=== PATIENT | male | born 1960 | race Caucasian/White ===

== ENCOUNTER 2022-09-25 19:54 | Inpatient (IN) | payer MEDICARE, MEDICAID ==
[~2022-09-25] VITALS: Ht 170.2 cm; Wt 103.0 kg
[2022-09-25 20:52] LABS: Basophils # (auto) 0.1 10 ^3/uL (0-0.2); Eosinophils # (auto) 0.4 10 ^3/uL (0-0.8); Hematocrit 47.1 % (41.0-53.0); Lymphocytes # (auto) 2.2 10 ^3/uL (0.4-5.4); Lymphocytes % (auto) 23.3 % (10.0-50.0); Mean Corpuscular Hemoglobin 32.2 pg (28.0-32.0); Mean Corpuscular Hgb Conc. 33.9 g/dL (32.0-36.0); Mean Corpuscular Volume 94.8 fL (80.0-100.0); Monocytes # (auto) 1.1 10 ^3/uL (0-1.3); Monocytes % (auto) 11.8 % (0.0-12.0); Neutrophils # (auto) 5.6 10 ^3/uL (1.6-8.6); Neutrophils % (auto) 59.9 % (37.0-80.0); Nucleated Red Blood Cells % 0.2 %; Red Blood Cells 4.96 10^6/uL (4.5-5.90); Red Cell Distribution Width 13.4 % (11.8-14.3); White Blood Cell 9.4 10^3/uL (4.4-10.8)
[2022-09-25 21:08] LABS: Albumin 3.8 g/dL (3.4-5.0); Calcium 8.7 mg/dL (8.5-10.1)
[2022-09-25 21:11] LABS: BUN/Creatinine Ratio 12.4 (10.0-20.0); Bilirubin, Total 0.5 mg/dL (0.2-1.0); Total Protein 7.1 g/dL (6.4-8.2)
[2022-09-25 21:15] LABS: INR 1.07 (0.9-1.15); Partial Thromboplastin Time 29.8 SEC (24.5-34.5)
[2022-09-25] MEDS ORDERED: HYDROmorphone HCL 2 MG/ML VL/or syr IM ONE (22:15)
[2022-09-25] MEDS ORDERED: HEPARIN SODIUM (PORCINE) 5000 UNITS/ML 1ML VIAL IV ONE (22:15)
[2022-09-25 22:30] VITALS: PULSE 80; RESP 14; O2SAT 96
[2022-09-25] MEDS ORDERED: ONDANSETRON HCL 4 MG/2 ML VIAL IV PRN (23:15)
[2022-09-25] MEDS ORDERED: TEMAZEPAM 15 MG CAP PO PRN (23:15)
[2022-09-25] MEDS ORDERED: HYDROcodone-ACET 5/325MG TAB PO PRN (23:15)
[2022-09-25] MEDS ORDERED: ACETAMINOPHEN 325 MG TAB PO PRN (23:15)
[2022-09-26 06:06] LABS: Basophils # (auto) 0.1 10 ^3/uL (0-0.2); Basophils % (auto) 0.9 % (0.0-2.0); Eosinophils # (auto) 0.4 10 ^3/uL (0-0.8); Eosinophils % (auto) 4.1 % (0.0-7.0); Lymphocytes # (auto) 2.6 10 ^3/uL (0.4-5.4); Lymphocytes % (auto) 29.3 % (10.0-50.0); Mean Corpuscular Hemoglobin 32.4 pg (28.0-32.0); Mean Corpuscular Hgb Conc. 34.2 g/dL (32.0-36.0); Mean Corpuscular Volume 94.7 fL (80.0-100.0); Monocytes % (auto) 10.9 % (0.0-12.0); Neutrophils # (auto) 4.8 10 ^3/uL (1.6-8.6); Neutrophils % (auto) 54.8 % (37.0-80.0); Nucleated Red Blood Cells % 0.1 %; Red Blood Cells 4.64 10^6/uL (4.5-5.90); Red Cell Distribution Width 13.5 % (11.8-14.3); White Blood Cell 8.9 10^3/uL (4.4-10.8)
[2022-09-26 06:15] LABS: INR 1.09 (0.9-1.15); Partial Thromboplastin Time 30.5 SEC (24.5-34.5)
[2022-09-26 06:24] LABS: Calcium 8.4 mg/dL (8.5-10.1); Potassium 4.1 mmol/L (3.5-5.1)
[2022-09-26 06:30] LABS: Albumin 3.2 g/dL (3.4-5.0); BUN/Creatinine Ratio 13.2 (10.0-20.0); Bilirubin, Total 0.9 mg/dL (0.2-1.0); Total Protein 6.3 g/dL (6.4-8.2)
[2022-09-26 07:30] VITALS: PULSE 88; RESP 18; O2SAT 95
[2022-09-26] MEDS ORDERED: SODIUM CHLORIDE 0.9% 1,000 ML IV ONE (08:00)
[2022-09-26] MEDS: ENOXAPARIN SOD 100 MG/1 ML SYRINGE SC SCH ×2 (10:42→23:13)
[2022-09-26] MEDS: PANTOPRAZOLE 40 MG TAB PO SCH (10:42)
[2022-09-26 19:35] LABS: BUN/Creatinine Ratio 13.4 (10.0-20.0); Calcium 8.3 mg/dL (8.5-10.1); Potassium 4.2 mmol/L (3.5-5.1)
[2022-09-27] MEDS: METOPROLOL SUCCINATE XL 50 MG TAB PO SCH ×2 (02:52→10:00)
[2022-09-27 07:20] VITALS: RESP 18; O2SAT 97
[2022-09-27 08:07] LABS: Alcohol, Urine < 3.0 mg/dL (0-10); Amphetamine Screen, Urine NEGATIVE (NEGATIVE); Barbiturate Scree,Urine NEGATIVE (NEGATIVE); Benzodiazephine Screen, Urine NEGATIVE (NEGATIVE); Cannabinoid Screen, Urine NEGATIVE (NEGATIVE); Cocaine Screen, Urine NEGATIVE (NEGATIVE); Opiate Scree,Urine NEGATIVE (NEGATIVE); Phencyclidine Screen, Urine NEGATIVE (NEGATIVE)
[2022-09-27 08:13] LABS: Urine Bacteria NONE SEEN /hpf (None Seen); Urine Blood Negative /uL (Negative); Urine Specific Gravity 1.012 (1.001-1.035); Urine WBC <1 /hpf (0 - 3)
[2022-09-27] MEDS ORDERED: ENO150SY SC (09:59)
[2022-09-27] MEDS: SODIUM CHLORIDE 0.9% 1,000 ML IV SCH ×2 (10:48→20:27)
[2022-09-27] MEDS: ENOXAPARIN SOD 100 MG/1 ML SYRINGE SC SCH ×2 (10:48→22:02)
[2022-09-27] MEDS: PANTOPRAZOLE 40 MG TAB PO SCH (10:48)
[2022-09-27 11:02] VITALS: BP 137/83; PULSE 52; RESP 20; TEMP 97.3; O2SAT 94
[2022-09-27 13:00] VITALS: BP 117/72; PULSE 61; RESP 20; TEMP 97.6; O2SAT 96
[2022-09-27] MEDS ORDERED: APIX5TAB PO (14:10)
[2022-09-27] MEDS ORDERED: METO25TA93 PO (14:10)
[2022-09-27 17:00] VITALS: BP 105/70; PULSE 58; RESP 20; TEMP 98.6; O2SAT 93
[2022-09-27 20:00] VITALS: PULSE 65; RESP 18; O2SAT 95
[2022-09-27 22:00] VITALS: BP 104/66; PULSE 65; RESP 18; TEMP 98.3; O2SAT 93
[2022-09-28 05:00] VITALS: BP 133/66; PULSE 57; RESP 18; TEMP 98.5; O2SAT 93
[2022-09-28] MEDS: SODIUM CHLORIDE 0.9% 1,000 ML IV SCH (06:00)
[2022-09-28 08:00] VITALS: PULSE 52; RESP 16
[2022-09-28 09:13] VITALS: BP 139/71; PULSE 52; RESP 17; TEMP 98.1; O2SAT 95
[2022-09-28] MEDS: ENOXAPARIN SOD 100 MG/1 ML SYRINGE SC SCH (10:04)
[2022-09-28] MEDS: PANTOPRAZOLE 40 MG TAB PO SCH (10:04)
[2022-09-28] MEDS: METOPROLOL SUCCINATE XL 50 MG TAB PO SCH (10:05)
[2022-09-28 13:00] VITALS: BP 130/76; PULSE 53; RESP 17; O2SAT 94
[2022-09-28 13:14] VITALS: BP 139/71; PULSE 68
[2022-09-29 11:53] LABS: Hepatitis B Surface Antibody Negative (Negative)
[2022-09-29 12:23] LABS: Hepatitis A Total Antibody Negative (Negative)
[2022-09-29 12:56] LABS: Hepatitis C Antibody Negative (Negative)
== END 2022-09-28 15:00 | disposition home or self-care (01) | DRG 300 ==
LOC: ER 19:54 → OVERFLOW 23:13 → CENTRAL 09-27 08:16
PROVIDERS: ADMIT Internal Medicine; ATTEND Internal Medicine
DX: I82.411 Acute embolism and thrombosis of right femoral vein (principal); D68.2 Hereditary deficiency of other clotting factors; G47.00 Insomnia, unspecified; K21.9 Gastro-esophageal reflux disease without esophagitis; I48.91 Unspecified atrial fibrillation; Z79.01 Long term (current) use of anticoagulants; Z80.0 Family history of malignant neoplasm of digestive organs; Z86.711 Personal history of pulmonary embolism; K74.60 Unspecified cirrhosis of liver; Z90.49 Acquired absence of other specified parts of digestive tract; E66.9 Obesity, unspecified; Z68.35 Body mass index [BMI] 35.0-35.9, adult
CPT/HCPCS: 36415; 71045; 71260; 74177; 80048; 80053; 80307; 81001; 83036; 83735; 84484; 85025; 85610; 85730; 86704; 86706; 86708; 86803; 87081; 87340; 93005; 93971; 96374; G0378

== ENCOUNTER 2025-02-27 21:45 | Inpatient (IN) | payer MEDICARE, MEDICAID ==
[~2025-02-27] VITALS: Ht 175.3 cm; Wt 99.5 kg
[~2025-02-27 21:45] MED LIST: APIX5TAB PO; CYCL-839 PO; ENO150SY SC; HYDR-4902 PO; METO25TA93 PO
--- NOTE | 2025-02-27 22:05 | ED.PDOC ---
History of Present Illness HPI Comments 64-year-old male who came to ER for chest pain. Patient has a history of Factor V Leiden disease, currently on Lovenox. Few hours ago, he started experiencing intermittent episodes of left-sided chest pains, 5/10 intensity, nonradiating, unprovoked. Denies any nausea, vomiting, diaphoresis or shortness of breath REVIEW OF SYSTEMS: General: No fever, no chills, or fatigue HEENT: No sore throat, no earache, no congestion, no neck pain. Cardiac: (+) chest pain. + palpitations. Lungs: No shortness of breath, no cough. GI: No nausea, no vomiting, no diarrhea, no constipation, no abdominal pain : No dysuria, frequency, or urgency. No hematuria. Musculoskeletal: No joint pain , no joint swelling, no extremity edema. Skin: No rash, no itching. Neuro: No headache, no dizziness, no weakness EXAM: General: Awake, alert and oriented. No acute distress. Skin: Skin in warm, dry and intact. Appropriate color for ethnicity. HEENT: The head is normocephalic and atraumatic. Conjunctivae are clear without exudates or hemorrhage. Sclera is non-icteric. EOM are intact. No signs of nystagmus. Eyelids are normal in appearance without swelling or lesions. Oral mucosa is pink and moist Neck: The neck is supple with normal range of motion. No JVD. Cardiac: Heart rate and rhythm are normal. No murmurs, gallops, or rubs are auscultated. Respiratory: No signs of respiratory distress. Lung sounds are clear in all lobes bilaterally without rales, rhonchi, or wheezes. Abdominal: Abdomen is soft, non-tender without distention. Bowel sounds are present and normoactive in all four quadrants. Extremities: Upper and lower extremities are atraumatic in appearance without deformity or edema. Neurological: The patient is awake, alert and oriented to person, place, and time with normal speech. Speech is clear. There is no facial asymmetry. Psychiatric: Appropriate mood and affect. Good judgement and insight Chief Complaint: Chest Pain Time Seen by MD: 22:05 Reviewed Notes: Nurses Notes Allergies: Coded Allergies: Piperacillin (Verified Allergy, Unknown, 09/27/22) Tazobactam (Verified Allergy, Unknown, 09/27/22) Vancomycin (Verified Allergy, Unknown, 09/27/22) Uncoded Allergies: UNKNOWN ANTIBIOTIC (Allergy, Unknown, 04/13/13) Home Meds Active Scripts Cyclobenzaprine Hcl (Cyclobenzaprine Hcl) 10 Mg Tab, 1 TAB PO Q8HR, #15 TAB as needed for muscle spasm do not take with norco Prov:CHEWYANICKALDA Q FABRICATION MIG WELDER 10/12/22 Hydrocodone-Acetaminophen (Hydrocodone Bitartrate/AC 5-325 mg) 1 Tab Tab, 1 TAB PO Q6HR, #8 TAB as needed for pain do not take with norco Prov:CHEWNORALDA Q FABRICATION MIG WELDER 10/12/22 Enoxaparin Sodium (Lovenox) 150 Mg/1 Ml Ij, 150 MG SC DAILY for 30 Days, #30 INJ 3 Refills Prov:RISHABH CONTEH MD 09/27/22 Reported Medications Metoprolol Succinate (Metoprolol Succinate Er) 25 Mg Tab, 25 MG PO DAILY for 30 Days, MG 09/27/22 Apixaban Base (ELIQUIS) 5 Mg Tab, 5 MG PO BID, TAB 09/27/22 Information Source: Patient Mode of Arrival: Ambulatory Past Medical History PAST MEDICAL HISTORY: Denies Past Medical History (Other): Factor V leiden disease, DVT Surgical History (Other): Exploratory laparatomy Family History Family History: Unknown Social History Smoker: Non-Smoker Alcohol: Denies ETOH Use Drugs: Denies Drug Use Lives In: Home Was a procedure done? Was a procedure done?: No EKG EKG : Comments Sinus bradycardia, multiple PVCs. No STEMI. Differential Dx Considerations may include: Differential diagnoses considered include acute ischemic coronary syndrome, aortic dissection, cardiac tamponade, mediastinitis, pulmonary embolus, pneumothorax, tension pneumothorax, esophageal rupture, coronary artery vasospasm, myocarditis, pericarditis, pneumonia, pulmonary edema, esophageal tear, pancreatitis, aortic stenosis, dilated cardiomyopathy, hypertrophic cardiomyopathy, mitral valve prolapse, malignancy, pleuritis, pneumomediastinum, primary pulmonary hypertension, cholecystitis, esophageal spasm, esophagus, gastritis, GERD, peptic ulcer disease, costochondritis, fibromyalgia, rib fracture, herpes zoster, radicular syndromes, thoracic outlet syndrome, somatization. X-Ray, Labs, Meds, VS Vital Signs Date Time Temp Pulse Resp B/P (MAP) Pulse Ox O2 Delivery O2 Flow Rate FiO2 02/28/25 04:09 97.6 58 20 114/75 (88) 96 97.6 02/28/25 04:09 58 20 96 Room Air 02/28/25 02:37 98.0 71 18 127/55 (79) 98 98.0 02/28/25 01:40 52 02/28/25 00:27 98.3 53 19 129/71 (90) 96 98.3 02/27/25 23:56 47 02/27/25 21:50 57 02/27/25 21:46 97.2 54 16 147/75 96 97.2 Lab Test 02/28/25 01:09 02/27/25 23:01 02/27/25 22:48 02/27/25 21:55 Range/Units Troponin I High Sensitivity 5 6 6 </=54 ng/L Urine Color Light-yellow Yellow Urine Clarity Clear Clear Urine pH 5.0 5.0-9.0 Urine Specific [place] 1.023 1.001-1.035 Urine Protein Negative Negative Urine Ketones Negative Negative Urine Blood Negative Negative /uL Urine Nitrite Negative Negative Urine Bilirubin Negative Negative Urine Urobilinogen Normal Negative mg/dL Urine Leukocyte Esterase Negative Negative /uL Urine RBC None seen 0 - 3 /hpf Urine Microscopic WBC < 1 0-3 /HPF Urine Squamous Epithelial Cells None seen <5 /hpf Urine Bacteria Few H None Seen /hpf Urine Mucus Few None Seen Urine Glucose Normal Normal mg/dL White Blood Count 6.3 4.4-10.8 10^3/uL Red Blood Count 4.72 4.5-5.90 10^6/uL Hemoglobin 15.4 13.5-17.5 g/dL Hematocrit 45.0 41.0-53.0 % Mean Corpuscular Volume 95.3 80.0-100.0 fL Mean Corpuscular Hemoglobin 32.6 H 28.0-32.0 pg Mean Corpuscular Hemoglobin Concent 34.2 32.0-36.0 g/dL Red Cell Distribution Width 13.7 11.8-14.3 % Platelet Count 273 140-450 10^3/uL Mean Platelet Volume 8.2 6.9-10.8 fL Neutrophils (%) (Auto) 45.0 37.0-80.0 % Lymphocytes (%) (Auto) 41.7 10.0-50.0 % Monocytes (%) (Auto) 9.9 0.0-12.0 % Eosinophils (%) (Auto) 2.3 0.0-7.0 % Basophils (%) (Auto) 1.1 0.0-2.0 % Neutrophils # (Auto) 2.9 1.6-8.6 10 ^3/uL Lymphocytes # (Auto) 2.6 0.4-5.4 10 ^3/uL Monocytes # (Auto) 0.6 0-1.3 10 ^3/uL Eosinophils # (Auto) 0.1 0-0.8 10 ^3/uL Basophils # (Auto) 0.1 0-0.2 10 ^3/uL Nucleated Red Blood Cells 0.1 % Prothrombin Time 10.3 9.3-11.8 sec Prothrombin Time INR 0.97 0.9-1.15 Sodium Level 143 136-145 mmol/L Potassium Level 4.5 3.5-5.1 mmol/L Chloride Level 106 98-107 mmol/L Carbon Dioxide Level 29 20-31 mmol/L Anion Gap 8 5-15 Blood Urea Nitrogen 14 9-23 mg/dL Creatinine 1.34 H 0.700-1.30 mg/dL Glomerular Filtration Rate Calc 60 >90 mL/min BUN/Creatinine Ratio 10.4 10.0-20.0 Serum Glucose 100 74-106 mg/dL Calcium Level 9.5 8.7-10.4 mg/dL Total Bilirubin 0.3 0.2-1.0 mg/dL Aspartate Amino Transferase (AST) 27 13-40 U/L Alanine Aminotransferase (ALT) 26 7-40 U/L Alkaline Phosphatase 49 46-116 U/L Total Protein 6.6 5.7-8.2 g/dL Albumin 4.4 3.2-4.8 g/dL Time of 1ST Reevaluation: 22:01 Reevaluation 1ST: Unchanged Patient Education/Counseling: Need For Follow Up Family Education/Counseling: No Family Present SEPSIS Sepsis Screen Date sepsis recognized/suspect: Feb 27, 2025 Time Sepsis recognized/suspect: 2150 Recent Procedure: No On Antibiotic Therapy: No Respiratory Rate >20: No Heart Rate >90: No Temp<36 C (96.8 F) or >38.3 C: No SBP <90 or MAP <65 mmHG: No New Acute Mental Status Change: No Is the patient on CPAP, BIPAP,: No Physician Orders Chest Portable (02/27/25 21:55) Electrocardigram (02/27/25 22:55) Saline Lock (02/27/25 21:58) Allergies (02/28/25 03:16) Code Status (02/28/25 03:16) Sodium Chloride Lock (Saline Lock Ns) (02/28/25 06:00) Oxygen Per Hour (02/28/25 03:16) Hydrocodone-Acet 5/325mg Tab ([place] 5/32 (02/28/25 03:30) Ondansetron Hcl (Zofran) (02/28/25 03:30) Complete Blood Count (03/01/25 04:00) Comprehensive Metabolic Panel (03/01/25 04:00) Cardiac Diet-2gna,Lofat,Lochol (02/28/25 Breakfast) Condition: Serious (02/28/25 03:16) Acetaminophen Tablet (Tylenol Tablet) (02/28/25 03:30) Bedrest With Bathroom Privileg (02/28/25 03:16) Maintain Bed Rest (02/28/25 03:16) Sequential Compression Device (02/28/25 ) Metoprolol Tartrate Tablet (Lopressor Ta (02/28/25 10:00) Vital Signs Date Time Temp Pulse Resp B/P (MAP) Pulse Ox O2 Delivery O2 Flow Rate FiO2 02/28/25 04:09 97.6 58 20 114/75 (88) 96 97.6 02/28/25 04:09 58 20 96 Room Air 02/28/25 02:37 98.0 71 18 127/55 (79) 98 98.0 02/28/25 01:40 52 02/28/25 00:27 98.3 53 19 129/71 (90) 96 98.3 02/27/25 23:56 47 02/27/25 21:50 57 02/27/25 21:46 97.2 54 16 147/75 96 97.2 Laboratory Tests Test 02/27/25 21:55 White Blood Count 6.3 10^3/uL (4.4-10.8) Departure 1 Departure Time of Disposition: 00:04 Impression: Primary Impression: Chest pain Additional Impression: Bradycardia Disposition: 09 ADMITTED INPATIENT Condition: Stable Comments 64-year-old male with multiple risk factors, chest pain concerning for ACS. Patient also reported palpitations. EKG shows sinus bradycardia with multiple PVCs. Patient admitted to hospitalist service for further treatment, evaluation and monitoring. Critical Care Note Critical Care Time?: No Stability Stability form required: No Heart Score Heart Score: Heart Score Response (Comments) Value History N/A 0 EKG N/A 0 Age N/A 0 Risk Factors N/A 0 Troponin N/A 0 Total 0 I personally scribed for MATT DEVINE MD ([email or web address]) on 02/27/25 at 22:05. Electronically submitted by Stevie Perez ([email or web address]). MATT DEVINE MD Feb 27, 2025 22:05
[2025-02-27 22:20] LABS: Hematocrit 45.0 % (41.0-53.0); Hemoglobin 15.4 g/dL (13.5-17.5); Mean Corpuscular Hemoglobin 32.6 pg (28.0-32.0); Mean Corpuscular Volume 95.3 fL (80.0-100.0); Nucleated Red Blood Cells % 0.1 %
[2025-02-27 22:24] LABS: Alanine Aminotransferase 26 U/L (7-40); Albumin 4.4 g/dL (3.2-4.8); Alkaline Phosphatase 49 U/L (46-116); Anion Gap 8 (5-15); BUN/Creatinine Ratio 10.4 (10.0-20.0); Bilirubin, Total 0.3 mg/dL (0.2-1.0); Blood Urea Nitrogen 14 mg/dL (9-23); Calcium 9.5 mg/dL (8.7-10.4); Carbon Dioxide 29 mmol/L (20-31); Chloride 106 mmol/L (98-107); Glucose 100 mg/dL (74-106); Potassium 4.5 mmol/L (3.5-5.1); Sodium 143 mmol/L (136-145); Total Protein 6.6 g/dL (5.7-8.2)
[2025-02-27 22:32] LABS: INR 0.97 (0.9-1.15); Prothrombin Time 10.3 sec (9.3-11.8)
[2025-02-27] MEDS: IOHEXOL 350 MG/ML 100ML IJ ONE (22:36)
[2025-02-27 23:43] LABS: Urine Protein, UAD Negative (Negative)
[2025-02-28] MEDS ORDERED: ACETAMINOPHEN 325 MG TAB PO PRN (03:30)
[2025-02-28] MEDS ORDERED: ONDANSETRON HCL 4 MG/2 ML VIAL IV PRN (03:30)
[2025-02-28] MEDS ORDERED: HYDROcodone-ACET 5/325MG TAB PO PRN (03:30)
[2025-02-28] MEDS ORDERED: DOCUSATE SOD 100 MG CAP PO PRN (03:30)
--- NOTE | 2025-02-28 05:09 | DVHHP2 ---
History of Present Illness Reason for Visit: Chest pain History of Present Illness The patient is a 64-year-old male with past medical history of DVT and factor V Leiden disease who presented to [facility] ED with complaint of chest pain. Patient reports that he has been experiencing intermittent episode of left-sided chest pain rating 5/10 numeric scale, nonradiating, getting worse that prompted this visit. Patient was seen and evaluated in the ED, laboratory data shows WBC 6.3, platelets 273, sodium 143, potassium 4.5, BUN 14, creatinine 1.34, GFR 60, glucose 100, calcium 9.5, troponin 5, blood pressure 127/55, heart rate 72, temperature 98.0 F, O2 saturation 98% on room air. Chest x-ray results pending. Please see medication orders section in the computer. On my assessment, patient denied chest pain at this moment, no headache, dizziness, diaphoresis, shortness of breaths, no abdominal pain, diarrhea, nausea, vomiting, fever, no chills. Patient was admitted for further evaluation and medical management. Past Medical History Factor V Leiden disease, DVT Past Surgical History Exploratory laparotomy Family History Reviewed, noncontributory to the management of this case. Past Social History The patient lives at home, denies smoking, alcohol or illicit drugs abuse. Review of Systems Constitutional: Yes: Weakness; No: Fever, Chills, Sweats, Malaise, Other Eyes: No: Pain, Vision change, Conjunctivae inflammation, Eyelid inflammation, Other, Redness ENT: No: Ear pain, Ear discharge, Nose pain, Nose discharge, Nose congestion, Mouth pain, Mouth swelling, Throat pain, Throat swelling, Other Respiratory: No: Cough, Dry, Shortness of breath, SOB with excertion, Wheezing, Hemoptysis, Pleuritic Pain, Sputum, Wheezing, Other Cardiovascular: Chest Pain; No: Palpitations, Orthopnea, Paroxysmal Noc. Dyspnea, Edema, Lt Headedness, Other Gastrointestinal: No: Nausea, Vomiting, Abdominal Pain, Diarrhea, Constipation, Melena, Hematochezia, Other Genitourinary: No Dysuria, No Frequency, No Incontinence, No Hematuria, No Retention, No Other Musculoskeletal: No: other, neck pain, shoulder pain, arm pain, back pain, hand pain, leg pain, foot pain Skin: No: Rash, Lesions, Jaundice, Bruising, Other Neurological: No: Weakness, Numbness, Incoordination, Change in speech, Confusion, Seizures, Other Allergies: Coded Allergies: Piperacillin (Verified Allergy, Unknown, 09/27/22) Tazobactam (Verified Allergy, Unknown, 09/27/22) Vancomycin (Verified Allergy, Unknown, 09/27/22) Uncoded Allergies: UNKNOWN ANTIBIOTIC (Allergy, Unknown, 04/13/13) Medications Current Medications Medications Dose Ordered Sig/Vini Route Start Time Stop Time Status Last Admin Dose Admin Apixaban 5 mg BID PO 02/28/25 10:00 Sodium Chloride 10 ml Q8HR IV 02/28/25 06:00 Acetaminophen/ Hydrocodone Bitart 1 tab Q4HP PRN PO 02/28/25 03:30 Ondansetron HCl 4 mg Q4HP PRN IV 02/28/25 03:30 Docusate Sodium 100 mg BIDPRN PRN PO 02/28/25 03:30 Acetaminophen 650 mg Q6HP PRN PO 02/28/25 03:30 Metoprolol Tartrate 12.5 mg BID PO 02/28/25 10:00 Exam Vital Signs Vital Signs Date Time Temp Pulse Resp B/P (MAP) Pulse Ox O2 Delivery O2 Flow Rate FiO2 02/28/25 04:09 97.6 58 20 114/75 (88) 96 97.6 02/28/25 04:09 Room Air General Appearance: Alert, Oriented X3, Cooperative, No acute distress HEENT: Atraumatic, PERRLA, EOMI, Mucous membr. moist/pink Respiratory: Clear to auscultation, Normal air movement Cardiovascular: Regular rate, Normal S1, Normal S2, No murmurs Abdominal: Normal bowel sounds, Soft, No tenderness, No hepatospenomegaly, No m asses Extremities: No clubbing, No cyanosis, No edema, Normal pulses, No tenderness/swelling Skin: No rashes, No significant lesion Neuro: Normal speech, Normal tone, Sensation intact, Cranial nerves 3-12 NL, Reflexes 2+, Other (Generalized weakness) Psych/Mental Status: Mental status NL, Mood NL Labs/Xrays Labs Test 02/28/25 01:09 02/27/25 23:01 02/27/25 21:55 Range/Units Troponin I High Sensitivity 5 </=54 ng/L Urine Color Light-yellow Yellow Urine Clarity Clear Clear Urine pH 5.0 5.0-9.0 Urine Specific [place] 1.023 1.001-1.035 Urine Protein Negative Negative Urine Ketones Negative Negative Urine Blood Negative Negative /uL Urine Nitrite Negative Negative Urine Bilirubin Negative Negative Urine Urobilinogen Normal Negative mg/dL Urine Leukocyte Esterase Negative Negative /uL Urine RBC None seen 0 - 3 /hpf Urine Microscopic WBC < 1 0-3 /HPF Urine Squamous Epithelial Cells None seen <5 /hpf Urine Bacteria Few H None Seen /hpf Urine Mucus Few None Seen Urine Glucose Normal Normal mg/dL White Blood Count 6.3 4.4-10.8 10^3/uL Red Blood Count 4.72 4.5-5.90 10^6/uL Hemoglobin 15.4 13.5-17.5 g/dL Hematocrit 45.0 41.0-53.0 % Mean Corpuscular Volume 95.3 80.0-100.0 fL Mean Corpuscular Hemoglobin 32.6 H 28.0-32.0 pg Mean Corpuscular Hemoglobin Concent 34.2 32.0-36.0 g/dL Red Cell Distribution Width 13.7 11.8-14.3 % Platelet Count 273 140-450 10^3/uL Mean Platelet Volume 8.2 6.9-10.8 fL Neutrophils (%) (Auto) 45.0 37.0-80.0 % Lymphocytes (%) (Auto) 41.7 10.0-50.0 % Monocytes (%) (Auto) 9.9 0.0-12.0 % Eosinophils (%) (Auto) 2.3 0.0-7.0 % Basophils (%) (Auto) 1.1 0.0-2.0 % Neutrophils # (Auto) 2.9 1.6-8.6 10 ^3/uL Lymphocytes # (Auto) 2.6 0.4-5.4 10 ^3/uL Monocytes # (Auto) 0.6 0-1.3 10 ^3/uL Eosinophils # (Auto) 0.1 0-0.8 10 ^3/uL Basophils # (Auto) 0.1 0-0.2 10 ^3/uL Nucleated Red Blood Cells 0.1 % Prothrombin Time 10.3 9.3-11.8 sec Prothrombin Time INR 0.97 0.9-1.15 Sodium Level 143 136-145 mmol/L Potassium Level 4.5 3.5-5.1 mmol/L Chloride Level 106 98-107 mmol/L Carbon Dioxide Level 29 20-31 mmol/L Anion Gap 8 5-15 Blood Urea Nitrogen 14 9-23 mg/dL Creatinine 1.34 H 0.700-1.30 mg/dL Glomerular Filtration Rate Calc 60 >90 mL/min BUN/Creatinine Ratio 10.4 10.0-20.0 Serum Glucose 100 74-106 mg/dL Calcium Level 9.5 8.7-10.4 mg/dL Total Bilirubin 0.3 0.2-1.0 mg/dL Aspartate Amino Transferase (AST) 27 13-40 U/L Alanine Aminotransferase (ALT) 26 7-40 U/L Alkaline Phosphatase 49 46-116 U/L Total Protein 6.6 5.7-8.2 g/dL Albumin 4.4 3.2-4.8 g/dL SEPSIS Sepsis Screen Date sepsis recognized/suspect: Feb 28, 2025 Time Sepsis recognized/suspect: 416 Recent Procedure: No On Antibiotic Therapy: No Respiratory Rate >20: No Heart Rate >90: No Temp<36 C (96.8 F) or >38.3 C: No SBP <90 or MAP <65 mmHG: No New Acute Mental Status Change: No Is the patient on CPAP, BIPAP,: No Physician Orders Chest Portable (02/27/25 21:55) Electrocardigram (02/27/25 21:55) Electrocardigram (02/27/25 22:55) Electrocardigram (02/28/25 00:55) Saline Lock (02/27/25 21:58) Complete Blood Count (02/28/25 04:00) Comprehensive Metabolic Panel (02/28/25 04:00) Apixaban (Eliquis) (02/28/25 10:00) Allergies (02/28/25 03:16) Code Status (02/28/25 03:16) Sodium Chloride Lock (Saline Lock Ns) (02/28/25 06:00) Oxygen Per Hour (02/28/25 03:16) Hydrocodone-Acet 5/325mg Tab ([place] 5/32 (02/28/25 03:30) Ondansetron Hcl (Zofran) (02/28/25 03:30) Docusate Sodium Capsule (Colace Capsule) (02/28/25 03:30) Complete Blood Count (03/01/25 04:00) Comprehensive Metabolic Panel (03/01/25 04:00) Cardiac Diet-2gna,Lofat,Lochol (02/28/25 Breakfast) Condition: Serious (02/28/25 03:16) Acetaminophen Tablet (Tylenol Tablet) (02/28/25 03:30) Bedrest With Bathroom Privileg (02/28/25 03:16) Maintain Bed Rest (02/28/25 03:16) Sequential Compression Device (02/28/25 ) Metoprolol Tartrate Tablet (Lopressor Ta (02/28/25 10:00) Vital Signs Date Time Temp Pulse Resp B/P (MAP) Pulse Ox O2 Delivery O2 Flow Rate FiO2 02/28/25 04:09 97.6 58 20 114/75 (88) 96 97.6 02/28/25 04:09 58 20 96 Room Air 02/28/25 02:37 98.0 71 18 127/55 (79) 98 98.0 02/28/25 00:27 98.3 53 19 129/71 (90) 96 98.3 02/27/25 23:56 47 02/27/25 21:50 57 02/27/25 21:46 97.2 54 16 147/75 96 97.2 Laboratory Tests Test 02/27/25 21:55 White Blood Count 6.3 10^3/uL (4.4-10.8) Assessment/Plan Assessment/Plan Chest pain Acute renal injury Generalized weakness Plan 1. Admit to telemetry unit 2. Breathing treatment 3. Pain control management 4. Management of fluids and electrolytes 5. Consultation for hospitalist 6. Diagnostic tests chest x-ray 7. DVT prophylaxis-on Eliquis 8. Repeat labs CBC, CMP in a.m. 9. Continue with current medical management 10. Treatment plan discussed with patient and RN. Patient verbalized understanding. Plan discussed with: Patient, Other (RN) My Orders Orders - ROLANDO PINEDA DNP Procedure Category Date Status Time Complete Blood Count LAB 02/28/25 Logged 04:00 Comprehensive LAB 02/28/25 Logged Metabolic Panel 04:00 Apixaban (Eliquis) PHA 02/28/25 In Process 10:00 Allergies LARISSA 02/28/25 In Process 03:16 Code Status CODE 02/28/25 Transmitted 03:16 Sodium Chloride Lock PHA 02/28/25 In Process (Saline Lock Ns) 06:00 Oxygen Per Hour RT 02/28/25 Transmitted 03:16 Hydrocodone-Acet PHA 02/28/25 In Process 5/325mg Tab ([place] 03:30 Ondansetron Hcl PHA 02/28/25 In Process (Zofran) 03:30 Docusate Sodium PHA 02/28/25 In Process Capsule (Colace 03:30 Complete Blood Count LAB 03/01/25 Verified 04:00 Comprehensive LAB 03/01/25 Verified Metabolic Panel 04:00 Cardiac DIET 02/28/25 Transmitted Diet-2gna,Lofat,Lochol Breakfast Condition: Serious LARISSA 02/28/25 In Process 03:16 Acetaminophen Tablet PHA 02/28/25 In Process (Tylenol Tablet) 03:30 Bedrest With Bathroom LARISSA 02/28/25 In Process Privileg 03:16 Maintain Bed Rest LARISSA 02/28/25 In Process 03:16 Sequential LARISSA 02/28/25 In Process Compression Device Metoprolol Tartrate PHA 02/28/25 In Process Tablet (Lopressor Ta 10:00 Problem List: (1) Chest pain (2) Acute renal injury (3) Generalized weakness Date of Service: Feb 28, 2025 Billing Provider: ROLANDO PINEDA DNP Common Visit Codes: [id number] INP/OBS CARE (HIGH) ROLANDO PINEDA DNP Feb 28, 2025 05:09
[2025-02-28] MEDS ORDERED: NITROGLYCERIN 0.4 MG SL TAB SL PRN (05:15)
[2025-02-28] MEDS ORDERED: MORPHINE SULFATE INJ 2 MG/ml SYRG IV PRN (05:15)
[2025-02-28 06:02] LABS: Hematocrit 43.6 % (41.0-53.0); Hemoglobin 14.7 g/dL (13.5-17.5); Mean Corpuscular Hemoglobin 32.1 pg (28.0-32.0); Mean Corpuscular Volume 95.2 fL (80.0-100.0); Nucleated Red Blood Cells % 0.0 %
[2025-02-28] MEDS: SODIUM CHLOR 0.9% PF (SALINE LOCK) 10ML VIAL/SYR IV SCH (06:17)
[2025-02-28 06:20] LABS: Alanine Aminotransferase 22 U/L (7-40); Albumin 4.0 g/dL (3.2-4.8); Anion Gap 9 (5-15); BUN/Creatinine Ratio 13.4 (10.0-20.0); Bilirubin, Total 0.5 mg/dL (0.2-1.0); Blood Urea Nitrogen 15 mg/dL (9-23); Calcium 9.1 mg/dL (8.7-10.4); Carbon Dioxide 27 mmol/L (20-31); Chloride 105 mmol/L (98-107); Potassium 3.8 mmol/L (3.5-5.1); Sodium 141 mmol/L (136-145); Total Protein 6.1 g/dL (5.7-8.2)
--- NOTE | 2025-02-28 06:26 | DVH ---
CHEST RADIOGRAPH INDICATION: CHEST PAIN TECHNIQUE: Single frontal view of the chest was obtained COMPARISON: XY CHEST PORTABLE on DOS: 09/25/22 FINDINGS: Lines and Tubes: None Lungs: Clear Pleura: No effusion. No pneumothorax. Cardiomediastinal contours: Unremarkable Bones: Unremarkable IMPRESSION: 1. No acute disease.
[2025-02-28 06:29] LABS: Alkaline Phosphatase 44 U/L (46-116); Glucose 131 mg/dL (74-106)
[2025-02-28 07:47] VITALS: PULSE 54; RESP 14; O2SAT 90
[2025-02-28] MEDS ORDERED: APIXABAN 5 MG TAB PO SCH (10:00)
[2025-02-28] MEDS: METOPROLOL TARTRATE 25 MG TAB PO SCH (10:00)
[2025-02-28 10:41] LABS: Magnesium 2.2 mg/dL (1.6-2.6)
--- NOTE | 2025-02-28 11:04 | DVHPNRES ---
Progress Note Date Seen: Feb 28, 2025 Resident Creating Document: HARESH HINKLE RESIDENT Medical Necessity Reason Pt with a Central, PICC or Fol: No Subjective Review of Systems Mr. Lamb is a 64 year old male with PMHx of Factor V Leiden Deficiency, DVTs, and Venous insufficiency, who presented to [facility] with chief complaint of chest pain. He refers he began to have intermittent stabbing retrosternal chest pain throughout the day, non-radiating, 7/10 intensity, at rest, without aggravating or relieving factors. She denies nausea, vomiting, shortness of breath, diaphoresis, palpitations, and dizziness. Due to persistence of symptoms, he presented to the emergency department for evaluation. On evaluation in the ED, is afebrile, slightly bradycardic, normotensive, saturating adequately on room air. Initial 12 lead EKG shows normal sinus rhythm. Initial labs are significant for mildly elevated creatinine, troponins are negative, BNP is within normal range. Chest Xray shows no acute disease. The patient was admitted for further work up and monitoring. 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 States he is currently living with a friend, states he will return there upon discharge. PCP: Dr. Corbett Home meds: Lovenox 150 mg SC daily 02/28/2025: Patient seen at bedside. He states he is well, pain has improved. He is afebrile, normocardic, normotensive, saturating adequately on room air. Follow up EKG done shows bradycardia with PVCs. ACS protocol was started, except for aspirin which the patient states he will not take due to being on Lovenox. Review of Systems: Constitutional: Denies weight loss, fever and chills. HEENT: Denies changes in vision and hearing. Respiratory: Denies shortness of breath and cough Cardiovascular: Denies chest discomfort or palpitations GI: Denies abdominal distention, abdominal pain, diarrhea : Denies dysuria and urinary frequency. Musculoskeletal: Denies Skin: Denies rash and pruritus. Neurological: denies dizziness headache vision or hearing problems Objective vital signs Vital Sign Date Time Temp Pulse Resp B/P (MAP) Pulse Ox O2 Delivery O2 Flow Rate FiO2 02/28/25 11:01 61 10 114/73 (87) 96 02/28/25 07:47 Room Air* 0 21 02/28/25 05:27 98.7 98.7 medications Current Medications Medications Dose Ordered Sig/Vini Route Start Time Stop Time Status Last Admin Dose Admin Sodium Chloride 10 ml Q8HR IV 02/28/25 06:00 02/28/25 06:17 10 ML Acetaminophen/ Hydrocodone Bitart 1 tab Q4HP PRN PO 02/28/25 03:30 Ondansetron HCl 4 mg Q4HP PRN IV 02/28/25 03:30 Acetaminophen 650 mg Q6HP PRN PO 02/28/25 03:30 Metoprolol Tartrate 12.5 mg BID PO 02/28/25 10:00 Nitroglycerin 0.4 mg Q5MINP PRN SL 02/28/25 05:15 Morphine Sulfate 2 mg Q30M PRN IV 02/28/25 05:15 Enoxaparin Sodium 150 mg DAILY SC 02/28/25 10:00 Pantoprazole Sodium 40 mg DAILY@0600 PO 03/01/25 06:00 UNV Examination General: The patient alert and oriented in person place and time. Patient following commands HEENT: Normocephalic, atraumatic, anisocoric pupils secondary to previous pupillary rupture, normoreacive, EOM intact, pink conjunctiva, pink moist mucous membrane Respiratory/pulmonary: Bilateral chest expansion, no pain on palpation of chest wall, clear lungs bilaterally, vesicular murmurs present in almost all lung ratliff, no associated crackles or wheezes. Cardiovascular: Normal RRR, normal S1 and S2, no murmurs Abdomen: Abdomen nondistended, presence of right sided abdominal hernia is noted, inducible with cough but reduces on its own, normal bowel sounds, soft, there is no pain to palpation in any of the abdominal quadrants, no palpable masses. Extremities: No deformities, there is no peripheral edema present at the lower extremities, normal pulses Skin: Presence of bruising on lower abdomen associated with home lovenox injections, there is no sacral edema present at this time. Neurological: Intact cranial nerves with no focal neurologic deficits laboratory and microbiology Laboratory Tests 02/28/25 05:27 Test 02/28/25 05:27 Range/Units Serum Glucose 131 H 74-106 mg/dL Problem List/Assessment/Plan Problem List/Assessment/Plan Assessment and Plan: Acute chest pain, rule out ACS - EKG: Sinus rhythm - Second EKG: Bradycardia with PVCs - Troponins negative - BNP 46.96 - Patient states he will not take aspirin due to being on Lovenox, I have informed the patient of the indication of aspirin - Lipitor 80 mg PO daily - Echocardiogram pending Possible GERD - Protonix 40 mg PO daily - Maalox 15 cc once Factor V Leiden deficiency - Lovenox 150 mg SC daily Prediabetes DVT prophylaxis: Lovenox 150 mg SC daily Protonix: 40 mg PO daily Nutrition: Cardiac Goals of care discussed with the patient for over 29 minutes. FULL CODE. Case discussed with Dr. Shrestha Plan discussed with: Patient, Other (Nurse) My Orders My Orders Orders - HARESH HINKLE RESIDENT Procedure Category Date Status Time Enoxaparin Sodium PHA 02/28/25 In Process (Lovenox) 10:00 Pantoprazole Tablet PHA 02/28/25 Logged (Protonix Tablet) 11:00 Pantoprazole Tablet PHA 03/01/25 Logged (Protonix Tablet) 06:00 Alum & Mag PHA 02/28/25 Logged Hydrox-Simethicone 11:00 Sepsis reassessment post fluid Capillary Refill: < 3 seconds Visit Coding STANDARD RES Billing Provider: WIN SHRESTHA MD Date of Service if different f: Feb 28, 2025 Common Visit Codes: [id number] INP/OBS CARE(HIGH) HARESH HINKLE RESIDENT Feb 28, 2025 11:04 WIN SHRESTHA MD Mar 05, 2025 13:49
[2025-02-28] MEDS: ATORVASTATIN 20 MG TAB PO ONE (11:28)
[2025-02-28] MEDS: ENOXAPARIN SOD 150 MG/1 ML SYRINGE SC SCH (12:14)
[2025-02-28] MEDS: MAALOX PLUS or MAALOX 30 ML PO ONE (12:27)
[2025-02-28] MEDS: PANTOPRAZOLE 40 MG TAB PO ONE (12:28)
[2025-02-28 16:40] VITALS: O2SAT 97
[2025-02-28 17:30] VITALS: BP 150/95; PULSE 59; RESP 20; TEMP 97.9; O2SAT 97
--- NOTE | 2025-02-28 18:58 | DVHSR ---
APPROVED REPORT EXAM: Two-dimensional and M-mode echocardiogram with Doppler and color Doppler. Blood Pressure: 127/55 mmHg INDICATION Chest Pain RISK FACTORS Height: 5'9, Weight: 228 DIMENSIONS LVDd 5.0 (3.8-5.7cm) LA (2D) 4.1 (1.9-4.0cm) Aortic Root 3.0 (2.0-3.7cm) LVDs 3.6 (2.5-4.0cm) LA (MM) (1.9-4.0cm) Aortic Cusp Exc 2.1 (1.5-2.0cm) EF (%) 56.0 (55-70%) Rt. Atrium 3.7 (1.9-4.0cm) Asc. Aorta 3.3 cm IVSd 1.0 (0.7-1.1cm) RV (D) (1.8-2.4cm) PWd 1.0 (0.7-1.1cm) Mitral Valve Mitral Mitral Stenosis E wave 0.70m/s MV Mean GR. mmHg A wave 0.83m/s MV Peak GR. 44mmHg E/A ratio 0.8 2D MVA cm2 DECEL Time 337ms PRESS 1/2 Time ms Aortic Valve Aortic Valve Aortic Stenosis V1 1.18m/s AO Mean GR. 3mmHg V2 1.21m/s AO Peak GR. 6mmHg LVOT Diameter 2.2 (1.8-2.4cm) Doppler DAX 3.71cm2 Pulmonic Valve V2 0.98m/s Conclusion LV EF IS 65% NORMAL VALVES NORMAL RV FUNCTION NO EFFUSION
--- NOTE | 2025-02-28 19:56 | ECG ---
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
--- NOTE | 2025-02-28 19:56 | ECG ---
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
[2025-02-28 20:00] VITALS: PULSE 56; PULSE 63; RESP 16; O2SAT 96
[2025-02-28 21:00] VITALS: BP 122/72; PULSE 54; RESP 17; TEMP 98.1; O2SAT 96
[2025-03-01] VITALS (8 sets, daily range): BP systolic 101–140; BP diastolic 70–88; PULSE 50–84; RESP 16–18; TEMP 97.6–98; O2SAT 93–97
[2025-03-01] MEDS: ENOXAPARIN SOD 100 MG/1 ML SYRINGE SC SCH (00:18)
[2025-03-01 01:41] LABS: Amphetamine Screen, Urine Neg (NEGATIVE); Barbiturate Scree,Urine Neg (NEGATIVE); Benzodiazephine Screen, Urine Neg (NEGATIVE); Cannabinoid Screen, Urine Neg (NEGATIVE); Cocaine Screen, Urine Neg (NEGATIVE); Opiate Scree,Urine Neg (NEGATIVE); Phencyclidine Screen, Urine Neg (NEGATIVE)
[2025-03-01] MEDS: PANTOPRAZOLE 40 MG TAB PO SCH (05:58)
[2025-03-01 06:47] LABS: Hematocrit 44.7 % (41.0-53.0); Hemoglobin 15.3 g/dL (13.5-17.5); Mean Corpuscular Hemoglobin 32.6 pg (28.0-32.0); Mean Corpuscular Volume 95.1 fL (80.0-100.0); Nucleated Red Blood Cells % 0.1 %
[2025-03-01 07:03] LABS: Alanine Aminotransferase 18 U/L (7-40); Albumin 3.9 g/dL (3.2-4.8); Anion Gap 11 (5-15); BUN/Creatinine Ratio 9.0 (10.0-20.0); Blood Urea Nitrogen 11 mg/dL (9-23); Calcium 9.2 mg/dL (8.7-10.4); Carbon Dioxide 24 mmol/L (20-31); Chloride 106 mmol/L (98-107); Glucose 99 mg/dL (74-106); Potassium 4.2 mmol/L (3.5-5.1); Sodium 141 mmol/L (136-145); Total Protein 6.0 g/dL (5.7-8.2)
[2025-03-01 07:04] LABS: Bilirubin, Total 0.7 mg/dL (0.2-1.0)
[2025-03-01 07:12] LABS: Alkaline Phosphatase 44 U/L (46-116)
[2025-03-01 08:19] LABS: Triglycerides 107 mg/dL (< 150)
[2025-03-01 08:21] LABS: Cholesterol 187 mg/dL (< 200); HDL Cholesterol 44 mg/dL (40-59)
[2025-03-01 09:54] LABS: Magnesium 2.2 mg/dL (1.6-2.6)
--- NOTE | 2025-03-01 13:32 | DVHPNRES ---
Progress Note Date Seen: Mar 01, 2025 Resident Creating Document: HARESH HINKLE RESIDENT Medical Necessity Reason Pt with a Central, PICC or Fol: No Subjective Review of Systems Mr. Lamb is a 64 year old male with PMHx of Factor V Leiden Deficiency, DVTs, and Venous insufficiency, who presented to [facility] with chief complaint of chest pain. He refers he began to have intermittent stabbing retrosternal chest pain throughout the day, non-radiating, 7/10 intensity, at rest, without aggravating or relieving factors. She denies nausea, vomiting, shortness of breath, diaphoresis, palpitations, and dizziness. Due to persistence of symptoms, he presented to the emergency department for evaluation. On evaluation in the ED, is afebrile, slightly bradycardic, normotensive, saturating adequately on room air. Initial 12 lead EKG shows normal sinus rhythm. Initial labs are significant for mildly elevated creatinine, troponins are negative, BNP is within normal range. Chest Xray shows no acute disease. The patient was admitted for further work up and monitoring. 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 States he is currently living with a friend, states he will return there upon discharge. PCP: Dr. Corbett Home meds: Lovenox 150 mg SC daily 03/01/2025: Patient seen at bedside. He states he is well. Per nurse, overnight patient's HR was in the 30s and he continues to present PVCs in telemetry strip. He is afebrile, normocardic, normotensive, and saturating within normal range. Follow up labs are within normal range. Patient will remain on telemetry observation for 24 hours for further monitoring. Objective vital signs Vital Sign Date Time Temp Pulse Resp B/P (MAP) Pulse Ox O2 Delivery O2 Flow Rate FiO2 03/01/25 13:00 97.6 84 18 101/71 (81) 97 97.6 03/01/25 08:00 Room Air* 0 21 Total Intake and Output 02/28/25 02/28/25 03/01/25 15:00 23:00 07:00 Intake Total 600 ml Balance 600 ml medications Current Medications Medications Dose Ordered Sig/Vini Route Start Time Stop Time Status Last Admin Dose Admin Sodium Chloride 10 ml Q8HR IV 02/28/25 06:00 03/01/25 05:58 10 ML Acetaminophen/ Hydrocodone Bitart 1 tab Q4HP PRN PO 02/28/25 03:30 Ondansetron HCl 4 mg Q4HP PRN IV 02/28/25 03:30 Acetaminophen 650 mg Q6HP PRN PO 02/28/25 03:30 Metoprolol Tartrate 12.5 mg BID PO 02/28/25 10:00 Nitroglycerin 0.4 mg Q5MINP PRN SL 02/28/25 05:15 Morphine Sulfate 2 mg Q30M PRN IV 02/28/25 05:15 Pantoprazole Sodium 40 mg DAILY@0600 PO 03/01/25 06:00 Enoxaparin Sodium 100 mg DAILY SC 03/01/25 00:00 03/01/25 00:18 100 MG Examination General: The patient alert and oriented in person place and time. Patient following commands HEENT: Normocephalic, atraumatic, normal reactive pupils, EOM intact, pink conjunctiva, pink moist mucous membrane Respiratory/pulmonary: Bilateral chest expansion, no pain on palpation of chest wall, clear lungs bilaterally, vesicular murmurs present in almost all lung ratliff, no associated crackles or wheezes. Cardiovascular: Normal RRR, normal S1 and S2, no murmurs Abdomen: Abdomen nondistended, presence of right sided abdominal hernia is noted, inducible with cough but reduces on its own, normal bowel sounds, soft, there is no pain to palpation in any of the abdominal quadrants, no palpable masses. Extremities: No deformities, there is no peripheral edema present at the lower extremities, normal pulses Skin: Presence of bruising on lower abdomen associated with home lovenox injections, there is no sacral edema present at this time. Neurological: Intact cranial nerves with no focal neurologic deficits laboratory and microbiology Laboratory Tests 03/01/25 06:01 Test 03/01/25 06:01 Range/Units Serum Glucose 99 74-106 mg/dL Problem List/Assessment/Plan Problem List/Assessment/Plan Assessment and Plan: Acute chest pain, rule out ACS - EKG: Sinus rhythm - Second EKG: Bradycardia with PVCs - Troponins negative - BNP 46.96 - Patient states he will not take aspirin due to being on Lovenox, I have informed the patient of the indication of aspirin - Lipitor 80 mg PO daily - Echocardiogram pending Possible GERD - Protonix 40 mg PO daily, patient is refusing medication despite counseling on importance of medication adherence - Maalox 15 cc once, patient is refusing medication Factor V Leiden deficiency - Lovenox 1 mg/kg SC daily Prediabetes DVT prophylaxis: Lovenox 150 mg SC daily Protonix: 40 mg PO daily Nutrition: Cardiac Goals of care discussed with the patient for over 27 minutes. FULL CODE. Case discussed with Dr. Shrestha Plan discussed with: Patient, Other (Nurse) My Orders My Orders Orders - HARESH HINKLE RESIDENT Procedure Category Date Status Time Enoxaparin Sodium PHA 03/01/25 In Process (Lovenox) 00:00 * Wound Consult CONS 03/01/25 Transmitted Sepsis reassessment post fluid Capillary Refill: < 3 seconds Visit Coding STANDARD RES Billing Provider: WIN SHRESTHA MD Date of Service if different f: Mar 01, 2025 Common Visit Codes: [id number] INP/OBS CARE(HIGH) HARESH HINKLE Mar 01, 2025 13:32 WIN SHRESTHA MD Mar 05, 2025 14:09
[2025-03-02] MEDS: ENOXAPARIN SOD 100 MG/1 ML SYRINGE SC SCH (00:46)
[2025-03-02 01:00] VITALS: BP 121/82; PULSE 58; RESP 16; TEMP 97.9; O2SAT 95
[2025-03-02 05:00] VITALS: BP 108/61; PULSE 52; RESP 16; TEMP 97.8; O2SAT 93
[2025-03-02 08:00] VITALS: PULSE 52
[2025-03-02 08:06] LABS: Potassium 4.0 mmol/L (3.5-5.1)
[2025-03-02 08:13] LABS: Magnesium 2.1 mg/dL (1.6-2.6)
[2025-03-02 08:45] VITALS: BP 102/60; PULSE 51; RESP 20; TEMP 98; O2SAT 93
[2025-03-02 13:25] VITALS: BP 97/57; PULSE 60; RESP 20; TEMP 97.9; O2SAT 95
[2025-03-02] MEDS ORDERED: FAMO20TA10 PO (15:13)
[2025-03-02] MEDS ORDERED: MAA30LQ GT (15:13)
--- NOTE | 2025-03-02 15:25 | DVHDSRES ---
Discharge Summary Date of Admission Resident Creating Document: GREG JEFFERS RESIDENT Feb 28, 2025 at 05:08 Date of Discharge: Mar 02, 2025 Labs/Diagnostic Data: Laboratory Results Test 03/02/25 07:00 03/01/25 06:01 03/01/25 00:20 02/28/25 05:27 Potassium Level 4.0 mmol/L (3.5-5.1) Phosphorus Level 3.6 mg/dL (2.4-5.1) Magnesium Level 2.1 mg/dL (1.6-2.6) White Blood Count 5.9 10^3/uL (4.4-10.8) Red Blood Count 4.70 10^6/uL (4.5-5.90) Hemoglobin 15.3 g/dL (13.5-17.5) Hematocrit 44.7 % (41.0-53.0) Mean Corpuscular Volume 95.1 fL (80.0-100.0) Mean Corpuscular Hemoglobin 32.6 pg (28.0-32.0) Mean Corpuscular Hemoglobin Concent 34.3 g/dL (32.0-36.0) Red Cell Distribution Width 13.7 % (11.8-14.3) Platelet Count 243 10^3/uL (140-450) Mean Platelet Volume 8.3 fL (6.9-10.8) Neutrophils (%) (Auto) 39.0 % (37.0-80.0) Lymphocytes (%) (Auto) 47.0 % (10.0-50.0) Monocytes (%) (Auto) 9.2 % (0.0-12.0) Eosinophils (%) (Auto) 2.4 % (0.0-7.0) Basophils (%) (Auto) 2.4 % (0.0-2.0) Neutrophils # (Auto) 2.3 10 ^3/uL (1.6-8.6) Lymphocytes # (Auto) 2.8 10 ^3/uL (0.4-5.4) Monocytes # (Auto) 0.5 10 ^3/uL (0-1.3) Eosinophils # (Auto) 0.1 10 ^3/uL (0-0.8) Basophils # (Auto) 0.1 10 ^3/uL (0-0.2) Nucleated Red Blood Cells 0.1 % Sodium Level 141 mmol/L (136-145) Chloride Level 106 mmol/L (98-107) Carbon Dioxide Level 24 mmol/L (20-31) Anion Gap 11 (5-15) Blood Urea Nitrogen 11 mg/dL (9-23) Creatinine 1.22 mg/dL (0.700-1.30) Glomerular Filtration Rate Calc 67 mL/min (>90) BUN/Creatinine Ratio 9.0 (10.0-20.0) Serum Glucose 99 mg/dL (74-106) Calcium Level 9.2 mg/dL (8.7-10.4) Total Bilirubin 0.7 mg/dL (0.2-1.0) Aspartate Amino Transferase (AST) 23 U/L (13-40) Alanine Aminotransferase (ALT) 18 U/L (7-40) Alkaline Phosphatase 44 U/L (46-116) Total Protein 6.0 g/dL (5.7-8.2) Albumin 3.9 g/dL (3.2-4.8) Triglycerides Level 107 mg/dL (< 150) Cholesterol Level 187 mg/dL (< 200) LDL Cholesterol 123 mg/dL (< 100) HDL Cholesterol 44 mg/dL (40-59) Urine Opiates Screen Neg (NEGATIVE) Urine Fentanyl Screen Neg (NEGATIVE) Urine Barbiturates Screen Neg (NEGATIVE) Urine Phencyclidine Screen Neg (NEGATIVE) Urine Amphetamines Screen Neg (NEGATIVE) Urine Benzodiazepines Screen Neg (NEGATIVE) Urine Cocaine Screen Neg (NEGATIVE) Urine Cannabinoids Screen Neg (NEGATIVE) Hemoglobin A1c 5.8 % A1C (<5.7) B-Type Natriuretic Peptide 46.96 pg/mL (0-100) Test 02/28/25 01:09 02/27/25 23:01 02/27/25 21:55 Troponin I High Sensitivity 5 ng/L (</=54) Urine Color Light-yellow (Yellow) Urine Clarity Clear (Clear) Urine pH 5.0 (5.0-9.0) Urine Specific [place] 1.023 (1.001-1.035) Urine Protein Negative (Negative) Urine Ketones Negative (Negative) Urine Blood Negative /uL (Negative) Urine Nitrite Negative (Negative) Urine Bilirubin Negative (Negative) Urine Urobilinogen Normal mg/dL (Negative) Urine Leukocyte Esterase Negative /uL (Negative) Urine RBC None seen /hpf (0 - 3) Urine Microscopic WBC < 1 /HPF (0-3) Urine Squamous Epithelial Cells None seen /hpf (<5) Urine Bacteria Few /hpf (None Seen) Urine Mucus Few (None Seen) Urine Glucose Normal mg/dL (Normal) Prothrombin Time 10.3 sec (9.3-11.8) Prothrombin Time INR 0.97 (0.9-1.15) Other Laboratory Tests 03/02/25 07:00 03/01/25 06:01 Brief Hx & Hospital Course: Mr. Lamb is a 64 year old male with PMHx of Factor V Leiden Deficiency, DVTs, and Venous insufficiency, who presented to [facility] with chief complaint of chest pain. He refers he began to have intermittent stabbing retrosternal chest pain throughout the day, non-radiating, 7/10 intensity, at rest, without aggravating or relieving factors. She denies nausea, vomiting, shortness of breath, diaphoresis, palpitations, and dizziness. Due to persistence of symptoms, he presented to the emergency department for evaluation. On evaluation in the ED, is afebrile, slightly bradycardic, normotensive, saturating adequately on room air. Initial 12 lead EKG shows normal sinus rhythm. Initial labs are significant for mildly elevated creatinine, troponins are negative, BNP is within normal range. Chest Xray shows no acute disease. The patient was admitted for further work up and monitoring. 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 States he is currently living with a friend, states he will return there upon discharge. PCP: Dr. Corbett Home meds: Lovenox 150 mg SC daily Hospital course: Patient admitted due to chest pain ruled out ACS. EKG shows no acute ST changes, temperature negative, BNP 46.96. Echocardiogram on 02/28/2025 showed LVEF 60%, normal valves, normal RV function and no effusion. Patient is a shows no acute cardiopulmonary disease. During hospitalization, patient treated conservatively and his symptoms significantly improved. Patient educate to change his dietary habits, avoid spicy and cheesy foods. During hospital history, patient treated both acute and chronic medical condition. Patient got maximum benefit during inpatient stay. Patient having strong family history of blood clotting disorder )Factor 5 Leiden deficiency) advised to continue Lovenox as directed and follow-up with his private Rheumatology outpatient in [place]. On examination on 03/02/2025, patient currently denies any fever, SOB, chest pain, headache, abdominal pain, dysuria or any other acute distress. Patient advised to continue Pepcid and Maalox, if not improvement significantly follow-up with primary care and may benefitted with outpatient GI workup like EGD. Patient also educated to resume home medication, medications sent to pharmacy. Patient is hemodynamically stable for discharge. Patient has received maximum benefit from inpatient treatment. Time was given to answer patient's questions and concerns in layman terms and explained by RN. Patient verbalized understanding and agreed with treatment and follow-up. Patient was recommended to return to ER if he experiences any worsening symptoms not limited to current symptoms. Follow-up with PCP and outpatient continuity clinic [facility] morning within week after discharge. Medications sent to the pharmacy, patient advised to resume home medication. Physical examination Constitutional: No: Fever, Chills, Sweats, Weakness, Malaise, Other Eyes: No: Pain, Vision change, Conjunctivae inflammation, Eyelid inflammation, Other, Redness ENT: No: Ear pain, Ear discharge, Nose pain, Nose discharge, Nose congestion, Mouth pain, Mouth swelling, Throat pain, Throat swelling, Other Respiratory: Shortness of breath; No: Cough, Dry, SOB with excertion, Wheezing, Hemoptysis, Pleuritic Pain, Sputum, Wheezing, Other Cardiovascular: No: Chest Pain, Palpitations, Orthopnea, Paroxysmal Noc. Dyspnea, Edema, Lt Headedness, Other Gastrointestinal: No: Nausea, Vomiting, Abdominal Pain, Diarrhea, Constipation, Melena, Hematochezia, Other Genitourinary: No Dysuria, No Frequency, No Incontinence, No Hematuria, No Retention, No Other Musculoskeletal: No: other, neck pain, shoulder pain, arm pain, back pain, hand pain, leg pain, foot pain Skin: No: Rash, Lesions, Jaundice, Bruising, Other Neurological: No: Weakness, Numbness, Incoordination, Change in speech, Confusion, Seizures, Other Operations or Procedures ORDERING PHYSICIAN: MATT DEVINE MD PROCEDURE(s): CXRP - CHEST PORTABLE REASON: CHEST PAIN ORDER NUMBER(s): [id number], ACCESSION NUMBER(s): [id number] CHEST RADIOGRAPH INDICATION: CHEST PAIN TECHNIQUE: Single frontal view of the chest was obtained COMPARISON: XY CHEST PORTABLE on DOS: 09/25/22 FINDINGS: Lines and Tubes: None Lungs: Clear Pleura: No effusion. No pneumothorax. Cardiomediastinal contours: Unremarkable Bones: Unremarkable IMPRESSION: 1. No acute disease. ATED BY: CLAY ESCUDERO MD DICTATED DATE/TIME: 02/28/25622 Condition at Discharge: Stable Final Diagnosis/Problems List Gastroesophageal reflux without esophagitis. Acute chest pain, ruled out ACS Factor V Leiden deficiency Prediabetes Obesity, BMI 32.4 Noncompliance with medication Discharge Disposition: Home Discharge Instruct/Medications Diet: Regular Activity: No Restrictions, As Tolerated Follow Up/Referral: PCP Outpatient continuity clinic Monday morning within week after discharge Follow-up with outpatient private rheumatology in [facility] GI follow-up 4-6 weeks after discharge Scheduled Enoxaparin Sodium (Lovenox), 150 MG SC DAILY Famotidine (Pepcid Tablet), 1 TAB PO BID Scheduled PRN Alum & Mag Hydrox-Simethicone (Maalox Plus), 30 ML GT TID PRN Discontinued Medications Apixaban Base (Eliquis), 5 MG PO BID, (Reported) Cyclobenzaprine Hcl (Cyclobenzaprine Hcl), 1 TAB PO Q8HR Hydrocodone-Acetaminophen (Hydrocodone Bitartrate/AC 5-325 mg), 1 TAB PO Q6HR Metoprolol Succinate (Metoprolol Succinate Er), 25 MG PO DAILY, (Reported) Discharge Statement: "Patient was advised to return to the ER or call 911 if any headaches, dizziness, shortness of breath, chest pain, abdominal pain, bleeding, fevers, or worsening of medical condition. Patient was counseled about treatment plan, medications, possible side effects, patientverbalized understanding. All questions were answered to the best of my ability. This discharge took greater then 30 minutes in planning, reviewing documentation, counseling the patient, and discussing with other team members." ASSESSMENT ASSESSMENT Assessment Gastroesophageal reflux without esophagitis. Visit Coding STANDARD RES Billing Provider: WIN BA MD Date of Service if different f: Mar 02, 2025 Common Visit Codes: [id number] DISCH DAY >30min GREG JEFFERS RESIDENT Mar 02, 2025 15:25 WIN BA MD Mar 05, 2025 14:25
--- NOTE | 2025-03-03 10:07 | ECG ---
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
== END 2025-03-02 17:00 | disposition home or self-care (01) | DRG 391 ==
LOC: ER 21:45 → OVERFLOW 02-28 05:08 → TELE-CENTR 02-28 17:23
PROVIDERS: ADMIT Student in an Organized Health Care Education/Training Program; ATTEND Student in an Organized Health Care Education/Training Program
DX: K21.9 Gastro-esophageal reflux disease without esophagitis (principal); N17.0 Acute kidney failure with tubular necrosis; Z79.01 Long term (current) use of anticoagulants; E66.9 Obesity, unspecified; D68.51 Activated protein C resistance; R73.03 Prediabetes; Z68.32 Body mass index [BMI] 32.0-32.9, adult; Z88.1 Allergy status to other antibiotic agents; Z79.899 Other long term (current) drug therapy; Z88.0 Allergy status to penicillin; Z91.148 Patient's other noncompliance with medication regimen for other reason; Z86.718 Personal history of other venous thrombosis and embolism
CPT/HCPCS: 36415; 71045; 80053; 80061; 80307; 81001; 83036; 83735; 83880; 84100; 84132; 84484; 85025; 85610; 93005; 93306; 96374; G0378